=== PATIENT | female | born 1945 | race Caucasian/White ===

== ENCOUNTER 2018-05-30 14:09 | Emergency (ER) | payer MEDICARE, OTHER ==
[~2018-05-30 14:09] MED LIST: ARICEPT23 MG PO; BENAZEPRIL HCL20 MG PO; NEXIUM40 MG PO; VOLTAREN75 MG PO; XANAX0.5 MG PO
== END 2018-05-30 15:15 | disposition left against medical advice (07) ==
LOC: ER 14:09
DX: Z04.3 Encounter for examination and observation following other accident (principal)

== ENCOUNTER → 2022-11-25 | Day surgery (SDC) | payer MEDICARE ==
[~2022-11-25] MED LIST changes: +ACETAMINOPHEN 1000 MG/100 ML 100 ML IV ONE; +BENAZEPRIL-HCT1 EAC1 PO; +CRESTOR10 MG PO; +DEXAMETHASONE SOD PHOS INJ 4 MG/ML SDV ONE; +ELIQUIS5 MG PO; +EPHEDRINE SULFATE INJ 50 MG/ML VIAL ONE; +FENTANYL CITRATE/PF 100MCG/2 ML INJ ONE; +GENTAMICIN 80MG/NS 100 ML 200 ML IV ONE; +GLYCOPYRROLATE INJ 0.2 MG/ML VIAL ONE; +IOPAMIDOL 610MG/1ML 300 MG/ML VIAL IV ONE; +LACTATED RINGER'S 1,000 ML ONE; +LIDOCAINE HCL 2% LOCAL INJ 5 ML SDV VIAL INJ ONE; +METOPROLOL SUCC50 MG PO; +MYRBETRIQ50 MG PO; +ONDANSETRON HCL INJ 2MG/ML 2ML 2 MG/ML VIAL ONE; +POVIDONE IODINE 0.05% 0.05 % ML PO ONE; +PROPOFOL IV EMULSION 10 MG/ML 20 ML VIAL ONE; +SEROQUEL25 MG PO; +SEVOFLURANE INHAL SOLN 250 ML PEN BTL ONE; +VENLAFAXINE H37.5 MG PO; +VITAMIN D3125 MCG PO; +XYZAL5 MG PO
[2022-11-25 06:19] LABS: BASOPHILS # (AUTO) 0.1 (0.0-0.1); BASOPHILS % 1.5 % (0.0-1.0); EOSINOPHILS # (AUTO) 0.4 (0.0-0.4); EOSINOPHILS % 6.6 % (0.0-6.0); HEMATOCRIT 34.8 % (34.2-44.1); HEMOGLOBIN 10.3 g/dL (12.0-16.0); LYMPHOCYTES # (AUTO) 1.1 (1.0-3.2); LYMPHOCYTES % 21.4 % (18.0-39.1); MEAN CORPUSCULAR HEMOGLOBIN 27.8 pg (28-32); MEAN CORPUSCULAR HGB CONC 29.6 g/dL (31-35); MEAN CORPUSCULAR VOLUME 93.8 fL (81-99); MONOCYTES # (AUTO) 0.5 (0.2-0.8); MONOCYTES % 8.9 % (4.4-11.3); NEUTROPHILS # (AUTO) 3.2 (2.1-6.9); NEUTROPHILS % 61.2 % (38.7-80.0); PLATELET COUNT 170 x10e3/uL (140-360); RED BLOOD COUNT 3.71 x10e6/uL (3.6-5.1); RED CELL DISTRIBUTION WIDTH 14.1 % (11.7-14.4)
[2022-11-25 06:53] LABS: ANION GAP 12.9 mmol/L (8-16); CALCIUM 8.8 mg/dL (8.4-10.2); CREATININE, SERUM 2.46 mg/dL (0.57-1.11); POTASSIUM 3.9 mmol/L (3.5-5.1)
[2022-11-25 09:01] VITALS: TEMP 97.5
[2022-11-25 09:53] VITALS: BP 114/74; PULSE 80; RESP 16; O2SAT 94
== END | disposition home or self-care (01) ==
LOC: OR 05:41
PROVIDERS: ATTEND Urology
DX: N13.2 Hydronephrosis with renal and ureteral calculous obstruction (principal); I12.9 Hypertensive chronic kidney disease with stage 1 through stage 4 chronic kidney disease, or unspecified chronic kidney disease; N18.9 Chronic kidney disease, unspecified; N39.0 Urinary tract infection, site not specified; N32.81 Overactive bladder; Z43.6 Encounter for attention to other artificial openings of urinary tract; N81.10 Cystocele, unspecified; N81.6 Rectocele; N95.2 Postmenopausal atrophic vaginitis; R35.1 Nocturia; I82.502 Chronic embolism and thrombosis of unspecified deep veins of left lower extremity; I25.10 Atherosclerotic heart disease of native coronary artery without angina pectoris; F03.90 Unspecified dementia, unspecified severity, without behavioral disturbance, psychotic disturbance, mood disturbance, and anxiety; Z74.01 Bed confinement status; Z79.02 Long term (current) use of antithrombotics/antiplatelets; Z79.899 Other long term (current) drug therapy; Z68.34 Body mass index [BMI] 34.0-34.9, adult; Z85.528 Personal history of other malignant neoplasm of kidney; Z95.0 Presence of cardiac pacemaker; Z87.891 Personal history of nicotine dependence
CPT/HCPCS: 36415; 50389; 52332; 52352; 71046; 74018; 74420; 80048; 84550; 85025; 87086; 88300; 93005; C1758; C1769; C1874; J0131; J1100; J1580; J2001; J2405; J2704; J3010; J7121; Q9967